=== PATIENT | female | born 1935 | race Caucasian/White ===

== ENCOUNTER 2017-09-28 08:46 | Emergency (ER) | payer MEDICARE ==
[~2017-09-28] VITALS: Ht 152.4 cm; Wt 77.0 kg
[2017-09-28 08:47] VITALS: BP 163/76; PULSE 57; RESP 16; TEMP 97.2; O2SAT 96
[2017-09-28] MEDS ORDERED: ALEN1TAB48 PO (09:50)
[2017-09-28] MEDS ORDERED: ZIAC2.5T PO (09:50)
[2017-09-28] MEDS ORDERED: SIMV40TA PO (09:50)
[2017-09-28] MEDS ORDERED: CELE200C PO (09:50)
[2017-09-28] MEDS ORDERED: BACTOIN EACH NARE (10:06)
[2017-09-28] MEDS ORDERED: BACT800T5 PO (10:06)
--- NOTE | 2017-09-28 10:06 | PD ---
HPI Chief Complaint: Edema Time Seen by Provider: 09:46 Travel History International Travel<30 days: No Contact w/Intl Traveler<30days: No Traveled to known affect area: No History of Present Illness HPI This is a 82-year-old female with complaints of having a "pimple" in her left naris times one week. She reports the area has become increasingly more tender and slightly swollen. She feels as if her left knee area and upper lip are swollen 2 to the pimple. Denies fever or chills. Symptoms severity moderate. Aggravated by touching the area. No alleviating factors. PFSH Past Medical History Hx Anticoagulant Therapy: Yes (325 MG. ASA DAILY) Cancer: Yes (r breast ) Cardiovascular Problems: Yes (HTN) Diabetes: No Radiation Therapy: Yes Tetanus Vaccination: < 5 Years Influenza Vaccination: Yes ?: Not Past Surgical History Tonsillectomy: Yes Social History Alcohol Use: No Tobacco Use: No Allergies-Medications (Allergen,Severity, Reaction): Coded Allergies: No Known Allergies (Unverified , 09/28/17) Reported Meds & Prescriptions Reported Meds & Active Scripts Active Reported Alendronate (Alendronate Sodium) 70 Mg Tab 70 Mg PO Q7D Simvastatin 40 Mg Tab 40 Mg PO DAILY Ziac (Bisoprolol-Hydrochlorothiazide) 2.5-6.25 Mg Tab 1 Tab PO DAILY Celebrex (Celecoxib) 200 Mg Cap 200 Mg PO BID Review of Systems Except as stated in HPI: all other systems reviewed are Neg General / Constitutional: No: Fever Eyes: No: Visual changes HENT: No: Headaches Cardiovascular: No: Chest Pain or Discomfort Respiratory: No: Shortness of Breath Gastrointestinal: No: Abdominal Pain Genitourinary: No: Dysuria Musculoskeletal: No: Pain Skin: No Rash Physical Exam Narrative GENERAL: Alert and well-appearing 82-year-old female SKIN: Warm and dry. HEAD: Normocephalic. EYES: No injection or drainage. Ear/nose/throat: 0.5CM erythematous raised and indurated area to the left naris. No fluctuance. No drainage. No discernible lip swelling. Uvula is midline. No oral airway swelling. NECK: Supple. No lymphadenopathy. Data Data Last Documented VS Vital Signs Date Time Temp Pulse Resp B/P (MAP) Pulse Ox O2 Delivery O2 Flow Rate FiO2 09/28/17 08:47 97.2 57 16 163/76 (860) 96 MDM Medical Decision Making Medical Screen Exam Complete: Yes Emergency Medical Condition: Yes Differential Diagnosis Abscess, cellulitis, folliculitis Narrative Course 82-year-old female here with early abscess to the left naris. No facial cellulitis. Patient will be treated with Bactrim DS by mouth and Bactroban ointment to the left naris. Diagnosis Primary Impression: Abscess Referrals: Primary Care Physician Additional Instructions: Bactrim DS as directed. Applied Bactroban ointment using a Q-tip to the left naris twice daily Scripts Mupirocin Nasal Oint (Bactroban Nasal Oint) 2% Oint 1 APPLIC EACH NARE BID for Mgmt Bacterial Infection, #1 TUBE 0 Refills For 5 days. Prov: Rosalind Pereira 09/28/17 Sulfamethoxazole-Trimethoprim (Bactrim DS) 800-160 Mg Tab 1 TAB PO BID for Infection, #20 TAB 0 Refills Prov: Rosalind Pereira 09/28/17 Disposition: 01 DISCHARGE HOME Condition: Stable Rosalind Pereira Sep 28, 2017 10:06
[2017-09-28] MEDS ORDERED: DOXY100C PO (14:56)
[2017-09-28] MEDS ORDERED: PRED20 PO (14:56)
== END 2017-09-28 10:20 | disposition home or self-care (01) ==
LOC: PHEFT 08:46
DX: J34.0 Abscess, furuncle and carbuncle of nose (principal); I10 Essential (primary) hypertension; Z79.01 Long term (current) use of anticoagulants; T78.40XA Allergy, unspecified, initial encounter; R06.03 Acute respiratory distress; L50.0 Allergic urticaria; R06.02 Shortness of breath
CPT/HCPCS: 99283

== ENCOUNTER 2017-09-28 13:10 | Emergency (ER) | payer MEDICARE ==
[~2017-09-28] VITALS: Ht 152.4 cm; Wt 75.0 kg
[~2017-09-28 13:10] MED LIST: ALEN1TAB48 PO; BACT800T5 PO; BACTOIN EACH NARE; CELE200C PO; SIMV40TA PO; ZIAC2.5T PO
[2017-09-28 13:15] VITALS: BP 150/70; PULSE 88; RESP 18; TEMP 97.8; O2SAT 99
[2017-09-28] MEDS ORDERED: FAMOTIDINE 20 MG/2 ML VIAL IV ONE (13:15)
--- NOTE | 2017-09-28 13:25 | PD ---
HPI Chief Complaint: Allergic/Adverse Reaction Time Seen by Provider: 13:15 Travel History International Travel<30 days: No Contact w/Intl Traveler<30days: No Traveled to known affect area: No History of Present Illness HPI This patient presents by [facility] for allergic reaction. She received appreciated from today for Bactrim. She took her first dose in a few minutes later she developed diffuse urticaria of her face and neck and trunk and extremities. She became itchy and started wheezing and became short of breath. Our department personal gave her epinephrine and IV Benadryl and IV Solu- Medrol. She received a breathing treatment during transport. At this point she feels itchy but is breathing better. Symptoms severity is moderate. Symptoms partially alleviated by the medications she received. No exacerbating factors. Duration 1 hour. PFSH Past Medical History Hx Anticoagulant Therapy: Yes (325 MG. ASA DAILY) Cancer: Yes (r breast ) Cardiovascular Problems: Yes (HTN) Diabetes: No Radiation Therapy: Yes Past Surgical History Tonsillectomy: Yes Social History Alcohol Use: No Tobacco Use: No Allergies-Medications (Allergen,Severity, Reaction): Coded Allergies: Sulfa (Sulfonamide Antibiotics) (Verified Allergy, Severe, Anaphylaxis, 09/28/17) Reported Meds & Prescriptions Reported Meds & Active Scripts Active Prednisone 20 Mg Tab 40 Mg PO DAILY Take 40 mg (2 tablets) daily for 5 days Doxycycline Hyclate 100 Mg Cap 100 Mg PO BID Bactroban Nasal Oint (Mupirocin Nasal Oint) 2% Oint 1 Applic EACH NARE BID For 5 days. Reported Alendronate (Alendronate Sodium) 70 Mg Tab 70 Mg PO Q7D Simvastatin 40 Mg Tab 40 Mg PO DAILY Ziac (Bisoprolol-Hydrochlorothiazide) 2.5-6.25 Mg Tab 1 Tab PO DAILY Celebrex (Celecoxib) 200 Mg Cap 200 Mg PO BID Review of Systems General / Constitutional: No: Fever Eyes: No: Visual changes HENT: No: Headaches Cardiovascular: No: Chest Pain or Discomfort Respiratory: Positive: Shortness of Breath, Wheezing Gastrointestinal: No: Abdominal Pain Genitourinary: No: Dysuria Musculoskeletal: No: Pain Skin: Positive Rash, Positive Itching, Positive Hives Neurologic: No: Weakness Psychiatric: No: Depression Endocrine: No: Polydipsia Hematologic/Lymphatic: No: Easy Bruising Physical Exam Narrative GENERAL: Well-nourished, well-developed patient with acute allergic reaction. SKIN: Focused skin assessment reveals diffuse erythematous urticaria of the trunk and neck and arms . Skin is Warm and dry. HEAD: Atraumatic. Normocephalic. EYES: Pupils equal and round. No scleral icterus. No injection or drainage. ENT: No nasal bleeding or discharge. Mucous membranes pink and moist. NECK: Trachea midline. No JVD. CARDIOVASCULAR: Regular rate and rhythm. No murmur appreciated. RESPIRATORY: No accessory muscle use. Clear to auscultation. Breath sounds equal bilaterally. GASTROINTESTINAL: Abdomen soft, non-tender, nondistended. Hepatic and splenic margins not palpable. MUSCULOSKELETAL: No obvious deformities. No clubbing. No cyanosis. No edema. NEUROLOGICAL: Awake and alert. No obvious cranial nerve deficits. Motor grossly within normal limits. Normal speech. PSYCHIATRIC: Appropriate mood and affect; insight and judgment normal. Data Data Last Documented VS Vital Signs Date Time Temp Pulse Resp B/P (MAP) Pulse Ox O2 Delivery O2 Flow Rate FiO2 09/28/17 14:32 75 16 109/54 (72) 97 Room Air 09/28/17 13:15 97.8 Orders Orders Famotidine Inj (Pepcid Inj) (09/28/17 13:15) Diphenhydramine Inj (Benadryl Inj) (09/28/17 14:45) [facility] Medical Decision Making Medical Screen Exam Complete: Yes Emergency Medical Condition: Yes Medical Record Reviewed: Yes Differential Diagnosis Anaphylaxis, urticaria, allergic reaction Narrative Course I have reviewed the patient's electronic medical record. Patient was seen earlier today and received antibiotic prescription which she then reacted to IV placed I gave her IV Pepcid in addition to the other medications she already received Saturation 99 and blood pressure 150/70 But observe her closely with multiple rechecks At this time airway is intact with no tongue lip or uvula swelling 1500: I suggested 1 more dose of IV Benadryl and further observation. Patient declines. She feels better and wants to go home. She has some rash on her trunk remaining but much improved. She is breathing fine. Advised her to use Benadryl orally every 6 hours for the next 24 hours I wrote her 3 days of prednisone and substituted doxycycline for her Bactrim Critical Care Narrative Aggregate critical care time was 35 minutes. Time to perform other separately billable procedures was not included in the critical care time. My time did not include minutes spent treating any other patients simultaneously or on activities that did not directly contribute to the patient's treatment. The services I provided to this patient were to treat and/or prevent clinically significant deterioration that could result in: Anaphylaxis, cardiopulmonary arrest, airway loss I provided critical care services requiring my management, as noted below: Chart data review, documentation time, medication orders and management, vital sign assessments/reviewing monitor data, ordering and reviewing lab tests, ordering and interpreting/reviewing x-rays and diagnostic studies, care of the patient and discussion of the patient with the admitting physicians. Diagnosis Primary Impression: Severe allergic reaction with respiratory distress Additional Instructions: The patient was advised to follow up with their physician and return if they worsen. Don't take Bactrim Use doxycycline for one week Use warm compresses on the nasal lesion The patient was advised to follow up with their physician and return if they worsen. Use Benadryl every 6 hours as needed for the next 24, watch for drowsiness Med/Other Pt SpecificInfo: Prescription(s) given Scripts Prednisone (Prednisone) 20 Mg Tab 40 MG PO DAILY, #6 TAB 0 Refills Take 40 mg (2 tablets) daily for 5 days Prov: James Musa MD 09/28/17 Doxycycline Hyclate (Doxycycline Hyclate) 100 Mg Cap 100 MG PO BID for Infection, #14 CAP 0 Refills Prov: James Musa MD 09/28/17 Disposition: 01 DISCHARGE HOME Condition: Stable James Musa MD Sep 28, 2017 13:25
[2017-09-28 13:37] VITALS: BP 131/62; PULSE 82; RESP 16; O2SAT 82
[2017-09-28 14:32] VITALS: BP 109/54; PULSE 75; RESP 16; O2SAT 97
[2017-09-28] MEDS: diphenhydrAMINE HCL 50 MG/ML VIAL IV PUSH ONE ×2 (14:45→15:04)
[2017-09-28] MEDS ORDERED: DOXY100C PO (14:56)
[2017-09-28] MEDS ORDERED: PRED20 PO (14:56)
[2017-09-28 15:24] VITALS: BP 100/67
== END 2017-09-28 15:24 | disposition home or self-care (01) ==
LOC: PHED 13:10
DX: T78.40XA Allergy, unspecified, initial encounter (principal); R06.03 Acute respiratory distress; L50.0 Allergic urticaria; R06.02 Shortness of breath; I10 Essential (primary) hypertension; Z79.01 Long term (current) use of anticoagulants
CPT/HCPCS: 96374; J1200